=== PATIENT | male | born 1975 | race Caucasian/White ===

== ENCOUNTER 2024-04-25 09:22 | Emergency (ER) | payer SELFPAY ==
[2024-04-25 09:24] VITALS: BP 160/113; PULSE 71; RESP 20; TEMP 36.6; O2SAT 99; BMI 26.6
--- NOTE | 2024-04-25 10:08 | CT_ITS ---
FINAL REPORT TECHNIQUE: Axial images through the abdomen and pelvis were performed without contrast. This study was performed with techniques to keep radiation doses as low as reasonably achievable, (ALARA). Individualized dose reduction techniques using automated exposure control or adjustment of mA and/or kV according to the patient's size were employed. CLINICAL HISTORY: L flank pain FINDINGS: Abdomen: The lung bases are clear. The liver parenchyma is homogeneous. The gallbladder is present. The spleen, pancreas, and adrenals are unremarkable. There are tiny nonobstructing stones in the left renal collecting system. There is [id number] left hydronephrosis. Hydroureter is seen to the level of the UVJ. There is an obstructing stone at the UVJ measuring 3 mm. Pelvis: The urinary bladder is unremarkable. The appendix is not visualized. There is no pelvic mass or inflammation. IMPRESSION: [id number] left hydronephrosis and hydroureter secondary to an obstructing UVJ stone. Nonobstructing left renal stones. Reviewed, Interpreted and Dictated by Srinivas Laguerre MD Transcribed by Myah Casas Authenticated and [facility]
[2024-04-25 10:13] LABS: Microscopic, Urine URINE MICROSCOPIC (MICROSCOPIC)
[2024-04-25] MEDS: KETOROLAC 30MG/ML VIAL 15 MG IV (10:16)
[2024-04-25] MEDS: LACTATED RINGERS 1000ML 1,000 ML 999 ML IV (10:16)
[2024-04-25] MEDS: ACETAMINOPHEN 1,000MG/100ML VIAL 1000 MG IV (10:16)
[2024-04-25] MEDS: ONDANSETRON 4MG/2ML VIAL 4 MG IV (10:16)
[2024-04-25 10:17] LABS: Appearance,Urine CLOUDY (Clear); Bilirubin,Urine Negative (Negative); Blood, Urine 3+ (Negative); Color,Urine YELLOW (Yellow); Glucose,Urine (UA) Negative (Negative); Ketones,Urine Negative (Negative); Leukocyte Esterase,Urine Negative (Negative); Nitrate,Urine Negative (Negative); PH,Urine 5.5 (5.0-8.5); Protein,Urine TRACE (Negative); Specific Gravity, Urine 1.025 (1.005-1.030); Urobilinogen,Urine 0.2 EU/dl (0.2)
[2024-04-25 10:18] LABS: Basophils # 0.1 K/mm3 (0-0.2); Basophils % 0.7 % (0.1-2.0); Eosinophils # 0.1 K/mm3 (0.0-0.4); Eosinophils % 1.2 % (0.1-12.0); Hematocrit 53.7 % (42.0-52.0); Hemoglobin 17.1 g/dL (14.1-18.0); Lymphocytes # 2.4 K/mm3 (0.7-4.5); Mean Corpuscular HGB Conc 31.8 g/dL (31.8-35.4); Mean Corpuscular Hemoglobin 28.7 pg (27.0-31.2); Mean Corpuscular Volume 90.3 fl (80-94); Mean Platelet Volume 8.8 fl (7.4-10.4); Monocytes # 0.6 K/mm3 (0.1-1.0); Monocytes % 4.9 % (1.7-9.3); Neutrophils # 8.7 K/mm3 (1.8-7.8); Neutrophils % 73.2 % (37.0-80.0); Platelet Count 300 K/mm3 (142-424); Red Blood Count 5.95 M/mm3 (4.60-6.20); Red Cell Distribution Width 14.4 % (11.5-17.5); White Blood Count 11.8 K/mm3 (4.8-10.8)
[2024-04-25 10:21] LABS: Alanine Aminotransferase 84 U/L (12-78); Albumin/Globulin Ratio 1.5 (1.1-1.8); Alkaline Phosphatase 108 U/L (38-126); Anion Gap 10.2 mEq/L (5-15); Aspartate Amino Transferase 62 U/L (17-59); Bilirubin,Total 1.5 mg/dl (0.2-1.3); Blood Urea Nitrogen 23 mg/dl (9-20); Calcium 9.8 mg/dl (8.4-10.2); Carbon Dioxide 27 mmol/L (22.0-30.0); Chloride 106 mmol/L (98-107); Creatinine Clearance Estimated 101 mL/min (50-200); Estimated Glomerular Filt Rate 90 ml/min (>60); GFR (African American) 109 ML/MIN (>60); Globulin 3.3 g/dL (1.3-3.2); Glucose 150 mg/dl (74-100); Potassium 4.2 mmoL/L (3.5-5.1); Sodium 139 mmol/L (136-145); Total Protein,Serum 8.3 g/dl (6.3-8.2)
[2024-04-25 10:33] LABS: Amorphous Sediment,Urine Trace /lpf; Bacteria,Urine 1+ /lpf; RBC,Urine 20-50 #/hpf (0-3); Squamous Epithelial Cell,Urine Occasional #/hpf (0-5); WBC,Urine Occasional #/hpf (0-3)
[2024-04-25 11:19] VITALS: BP 143/93; PULSE 64; RESP 20; TEMP 37; O2SAT 97
--- NOTE | 2024-04-25 11:26 | HMH.EDGENADL ---
Discharge Plan Disposition Patient Disposition: Home, Self-Care Condition: Good Prescriptions Prescriptions: New oxycodone 5 mg tablet 5 mg PO Q8H PRN (Reason: pain) Qty: 10 0RF ondansetron 4 mg tablet,disintegrating 4 mg PO Q8H PRN (Reason: nausea and vomiting) 4 Days Qty: 12 0RF tamsulosin [Flomax] 0.4 mg capsule 0.4 mg PO HS Qty: 14 0RF No Action atorvastatin 80 mg tablet 80 mg PO DAILY carvedilol 6.25 mg tablet 6.25 mg PO BID aspirin 81 mg tablet,delayed release (DR/EC) 81 mg PO DAILY sertraline 25 mg tablet 25 mg PO DAILY Brilinta 90 mg tablet 90 mg PO BID Referrals Follow up/Referrals: Provider,Referral, MD [Primary Care Provider] - See instructions Activity Restrictions/Add. Instructions Additional Instructions/Restrictions: You were evaluated in the emergency department today. Please picker packer your prescriptions at the pharmacy and take them as prescribed. Do not drive or operate heavy machinery while taking narcotic pain medication. You may also choose to take Tylenol at home every 4-6 hours as needed for pain instead. Follow-up closely outpatient with your primary care provider as well as with urology. Return to the emergency department right away for new or worsening symptoms such as significant worsening of pain, inability to tolerate oral intake, or fever greater than 100.4 ?F. Clinical Impressions Clinical Impression: Ureterolithiasis Stand Alone Forms Stand Alone Forms: Work/School Release Instructions Patient Instructions: DI for Kidney Stones, DI for Prescription Opioid Use Print Language Print Language: Tajik Discharge ED Provider: Kaya Chavez General Adult HPI General Chief complaint: PAIN Stated complaint: pain in lower left side Time Seen by Provider: 04/25/24 09:28 Mode of Arrival: Ambulatory Source of Information: Patient Limitations: No Limitations Description of Symptoms (Recalled from ER Triage Doc. by RN): Patient presents to ED with left sided flank pain started last night. Patient reports hx of kidney stones. Patient denies pain with urination/frequency. History of Present Illness HPI narrative: This patient is a 48-year-old male with a history of prior CVA, CAD status post tenting on Brilinta, and prior kidney stones presenting to the emergency department for evaluation with concern for left-sided flank pain that started early this morning. He states that he has a history of kidney stones and this feels similar. No fevers, chills, vomiting, changes in bowel movements, or other concerns. Related Data Home Medications ?Medication ?Instructions ?Recorded ?Confirmed aspirin 81 mg tablet,delayed 81 mg PO DAILY 04/25/24 04/25/24 release atorvastatin 80 mg tablet 80 mg PO DAILY 04/25/24 04/25/24 carvedilol 6.25 mg tablet 6.25 mg PO BID 04/25/24 04/25/24 sertraline 25 mg tablet 25 mg PO DAILY 04/25/24 04/25/24 ticagrelor 90 mg tablet (Brilinta) 90 mg PO BID 04/25/24 04/25/24 Previous Rx's ?Medication ?Instructions ?Recorded ondansetron 4 mg disintegrating 4 mg PO Q8H PRN nausea and 04/25/24 tablet vomiting 4 days #12 tabs oxycodone 5 mg tablet 5 mg PO Q8H PRN pain #10 tabs 04/25/24 tamsulosin 0.4 mg capsule (Flomax) 0.4 mg PO HS #14 caps 04/25/24 Allergies Allergy/AdvReac Type Severity Reaction Status Date / Time No Known Allergies Allergy Verified 04/25/24 09:36 [facility] Disclaimer: The information contained in this section may have been updated after the patient was seen, as this information can be updated by other users. Social History Smoking Status: Former smoker alcohol intake: never current occupational status: employed Travel in the last 8 weeks: None ROS Obtained: Yes All systems reviewed & no additional complaints except as documented Physical Exam General General appearance: alert and in no apparent distress Head Head exam: atraumatic and normocephalic Eye Eye exam: Present normal appearance, PERRL and EOMI ENT ENT exam: Present normal exam, normal oropharynx, mucous membranes moist and normal external ear exam Neck Neck exam: Present normal inspection, full ROM and trachea midline; Absent tenderness Chest Chest inspection: Present normal inspection and symmetric chest wall rise; Absent tenderness Respiratory Respiratory exam: Present normal lung sounds bilaterally; Absent respiratory distress, wheezes, stridor or accessory muscle use Cardiovascular Cardiovascular exam: Present regular rate and normal rhythm Abdominal Exam Abdominal exam: Present soft; Absent distention, tenderness or guarding Extremities Exam Extremities exam: Present normal inspection, full ROM and normal capillary refill; Absent tenderness or edema Back Exam Back exam: Present normal inspection, full ROM and CVA tenderness (L) Neurological Exam Neurological exam: Present alert, oriented X3, CN II-XII intact and normal gait; Absent motor sensory deficit Psychiatric Psychiatric exam: Present normal affect and normal mood Skin Skin exam: Present warm and dry Medical Decision Making Medical Records Medical records reviewed: Yes I reviewed the patient's medical records. Screening: Per USPSTF and CDC recommendations, given the prevalence of disease in our region, it is our hospital?s policy to screen for HIV and viral Hepatitis for all patients aged 18 and over and those with ongoing risk factors. Ritchie Inquiry Pt receiving controlled substance: Yes Ritchie was queried for this patient: Yes Risks and benefits of using a controlled substance: were discussed with pt by me Vital Signs: 04/25/24 09:24 04/25/24 11:19 Temperature 97.9 F 98.6 F Temperature Source Oral Oral Pulse Rate 64 Pulse Rate [Right Brachial] 71 Respiratory Rate 20 20 Blood Pressure 143/93 H Blood Pressure [Right Arm] 160/113 H Blood Pressure Mean [Right Arm] 128 Blood Pressure Source Automatic Cuff Blood Pressure Source [Right Arm] Automatic Cuff Blood Pressure Position Supine Blood Pressure Position [Right Arm] Supine 02 Sat by Pulse Oximetry 99 Oxygen Delivery Method Room Air Room Air Lab Data Lab results reviewed: Yes I reviewed the patient's lab results. Lab Results 04/25/24 09:31: Urine Color Yellow, Urine Appearance Cloudy, Urine pH 5.5, Ur Specific Barrett 1.025, Urine Protein Trace, Urine Glucose (UA) Negative, Urine Ketones Negative, Urine Blood 3+ A, Urine Nitrate Negative, Urine Bilirubin Negative, Urine Urobilinogen 0.2, Ur Leukocyte Esterase Negative, Urine RBC 20-50, Urine WBC Occasional, Ur Squamous Epith Cells Occasional, Amorphous Sediment Trace, Urine Bacteria 1+ 04/25/24 09:38: WBC 11.8 H, RBC 5.95, Hgb 17.1, Hct 53.7 H, MCV 90.3, MCH 28.7, MCHC 31.8, RDW 14.4, Plt Count 300, MPV 8.8, Neut % (Auto) 73.2, Lymph % (Auto) 20.0, Cannon % (Auto) 4.9, Eos % (Auto) 1.2, Baso % (Auto) 0.7, Neut # (Auto) 8.7 H, Lymph # (Auto) 2.4, Cannon # (Auto) 0.6, Eos # (Auto) 0.1, Baso # (Auto) 0.1, Sodium 139, Potassium 4.2, Chloride 106, Carbon Dioxide 27, Anion Gap 10.2, BUN 23 H, Creatinine 0.90, Estimated Creat Clear 101, Estimated GFR 90, Est GFR ( Amer) 109, Glucose 150 H, Calcium 9.8, Total Bilirubin 1.5 H, AST 62 H, ALT 84 H, Alkaline Phosphatase 108, Total Protein 8.3 H, Albumin 5.0, Globulin 3.3 H, Albumin/Globulin Ratio 1.5 04/25/24 09:38 04/25/24 09:38 Orders (Tests/Meds): ED MEDICATIONS Discontinued Medications Generic Name Dose Route Start Last Admin Trade Name Freq PRN Reason Stop Dose Admin Acetaminophen 1,000 mg 04/25/24 10:09 04/25/24 10:16 Acetaminophen 1,000mg/100ml Vial IV 04/25/24 10:10 1,000 mg ONCE ONE Administration Lactated Ringer's 1,000 mls @ 999 mls/hr 04/25/24 10:09 04/25/24 10:16 Lactated Ringer's 1000 Ml Bag IV 04/25/24 11:09 999 mls/hr .Q1H1M ONE Administration Ketorolac Tromethamine 15 mg 04/25/24 10:09 04/25/24 10:16 Ketorolac 30mg/Ml Vial IV 04/25/24 10:10 15 mg ONCE ONE Administration Ondansetron HCl 4 mg 04/25/24 10:09 04/25/24 10:16 Ondansetron 4mg/2ml Vial IV 04/25/24 10:10 4 mg ONCE ONE Administration ORDERS Category Date Time Status CT abdomen pelvis wo con Stat Cat Scan 04/25/24 10:08 Taken Complete Blood Count Auto Diff Stat Lab 04/25/24 09:38 Completed Comprehensive Metabolic Panel Stat Lab 04/25/24 09:38 Completed HIV (1&2) Antibody Rapid Stat Lab 04/25/24 09:38 Received Hep C Ab with Reflex to RNA Stat Lab 04/25/24 09:38 Received UA [Urinalysis and Microscopic] Stat Lab 04/25/24 09:31 Completed Medical Decision Narrative: In summary, this patient is a 48-year-old male presenting to the Emergency Department for evaluation of left flank. Differential diagnoses considered include but are not limited to ureterolithiasis, pyelonephritis, colitis, cystitis. Ruling out the most morbid conditions drove assessment. It should be noted patient's history includes CAD status post stenting on Brilinta and prior CVA which may or may not be at goal therapy. This complicates all aspects of care by increasing patient's risk for morbidity. On exam, the patient is sitting upright in no acute distress. He has left CVA tenderness but otherwise exam is reassuring. Workup included CBC, CMP, urinalysis, and CT abdomen pelvis without IV contrast. He was given a bolus of IV fluids as well as IV Toradol, acetaminophen, and Zofran for symptomatic improvement. I independently interpreted CT scan prior to the radiologist read and noted left stone that is right at the UVJ and may have already actually entered the bladder with some left-sided hydroureter. Please see their read for final interpretation. Labs were obtained that demonstrated blood in the urine without overt signs of infection such as leukocyte esterase or nitrates and very mild leukocytosis. Patient is afebrile and urine is not immediately concerning for infection. On reassessment, patient had great improvement after administration of interventions above. He states his pain is resolved. It is possible he could have passed a stone, or just gotten significant symptomatic improvement from Toradol and Tylenol. Ultimately, no indications of infection at this time and pain is under control, so I feel the patient is appropriate for discharge home with trial of passage. He was given prescriptions for oxycodone, Flomax, and Zofran as well as instructions for close outpatient follow-up and strict return precautions. He expressed understanding agreement was discharged after all questions were answered. Critical Care Critical Care Time Critical Care Time: No
[2024-04-25 13:42] LABS: HIV (1&2) Antibody Rapid NONREACTIVE (NONREACTIVE)
[2024-04-26 06:16] LABS: HCV Ab Non Reactive (Non Reactive)
== END 2024-04-25 11:23 | disposition home or self-care (01) ==
PROVIDERS: Emergency Provider Emergency Medicine
DX: N20.1 Calculus of ureter (principal); R10.30 Lower abdominal pain, unspecified; Z87.442 Personal history of urinary calculi
CPT/HCPCS: 74176; 80053; 81001; 85025; 86803; 87389; 96361; 96374; 96375; 99284; J0131; J1885; J2405; J7120